=== PATIENT | male | born 1980 | race Hispanic/Latino ===

== ENCOUNTER 2018-04-16 19:45 | Inpatient (IN) | payer SELFPAY ==
[~2018-04-16] VITALS: Ht 152.4 cm; Wt 71.6 kg
[2018-04-16 21:03] LABS: HEMATOCRIT 43.6 % (39.0-50.0); HEMOGLOBIN 14.7 g/dl (14.0-18.0); IMMATURE GRANULOCYTES 0.2 % (0.0-5.0); MEAN CELL VOLUME 91.8 fL CALC (80.0-100.0); MEAN CORPUSCULAR HGB 30.9 pG CALC (26.0-32.0); MEAN CORPUSCULAR HGB CONC 33.7 g/L CALC (32.0-36.0); NEUT# 3.83 thou/uL (1.82-7.42); RED BLOOD COUNT 4.75 mill/uL (4.70-6.10); RED CELL DISTRI WIDTH 12.1 % (11.5-15.5)
[2018-04-16 21:15] LABS: ALBUMIN 3.7 g/dL (3.2-5.0); ALKALINE PHOSPHATASE 61 u/l (38-126); ANION GAP 15 (6-22 (CALC)); BILIRUBIN, TOTAL 0.5 mg/dL (0.0-1.4); BUN 12 mg/dL (9-20); BUN/CREATININE RATIO 17 (12-20 (CALC)); CARBON DIOXIDE 27 mmol/l (22-30); CHLORIDE 98 mmol/l (95-108); CREATININE 0.7 mg/dL (0.7-1.3); GFR > 60 ML/MIN (>=60 (CALC)); GFR FOR AFR.AMER. > 60 ML/MIN (>=60 (CALC)); SGOT/AST 48 u/l (17-59); SODIUM 136 mmol/l (137-146)
[2018-04-17 01:00] VITALS: BP 122/72
[2018-04-17 04:05] VITALS: BP 127/64
[2018-04-17 07:30] VITALS: BP 105/63
[2018-04-17 10:44] LABS: URINE BILIRUBIN - DIPSTICK NEGATIVE (NEGATIVE); URINE BLOOD DIPSTICK TRACE-INTACT (NEGATIVE); URINE GLUCOSE - DIPSTICK NEGATIVE (NEGATIVE); URINE KETONE NEGATIVE (NEGATIVE); URINE LEUK ESTERASE NEGATIVE (Negative); URINE NITRITE - DIPSTICK NEGATIVE (Negative); URINE PH 5.5 (4.5-8.0); URINE PROTEIN - DIPSTICK 100 mg/dL (NEG-TRACE); URINE SPECIFIC GRAVITY >=1.030; URINE UROBILINOGEN - DIPSTICK 0.2 E.U./dL (0.2)
[2018-04-17 10:46] LABS: URINE CLARITY CLEAR; URINE COLOR DK. YELLOW
[2018-04-17 10:58] LABS: URINE RBC 0-2 RBC/hpf (0-5); URINE WBC 0-2 WBC/hpf (0-5)
[2018-04-17 11:10] VITALS: BP 114/76
[2018-04-17 15:35] VITALS: BP 131/73
[2018-04-17 19:05] VITALS: BP 131/79
[2018-04-18] VITALS: BP 145/71
[2018-04-18 05:22] VITALS: BP 121/71
[2018-04-18 06:08] LABS: HEMATOCRIT 42.1 % (39.0-50.0); HEMOGLOBIN 14.2 g/dl (14.0-18.0); IMMATURE GRANULOCYTES 0.4 % (0.0-5.0); MEAN CELL VOLUME 93.1 fL CALC (80.0-100.0); MEAN CORPUSCULAR HGB 31.4 pG CALC (26.0-32.0); MEAN CORPUSCULAR HGB CONC 33.7 g/L CALC (32.0-36.0); PLATELET COUNT 93 thou/uL (130-400); RED BLOOD COUNT 4.52 mill/uL (4.70-6.10)
[2018-04-18 06:10] LABS: ALBUMIN 3.3 g/dL (3.2-5.0); ALKALINE PHOSPHATASE 72 u/l (38-126); ANION GAP 11 (6-22 (CALC)); BILIRUBIN, TOTAL 0.5 mg/dL (0.0-1.4); BUN 10 mg/dL (9-20); BUN/CREATININE RATIO 15 (12-20 (CALC)); CARBON DIOXIDE 30 mmol/l (22-30); CHLORIDE 100 mmol/l (95-108); CREATININE 0.7 mg/dL (0.7-1.3); GFR > 60 ML/MIN (>=60 (CALC)); GFR FOR AFR.AMER. > 60 ML/MIN (>=60 (CALC)); SGOT/AST 42 u/l (17-59); SODIUM 137 mmol/l (137-146); TOTAL PROTEIN 6.5 g/dL (6.3-8.2)
[2018-04-18 06:56] LABS: MANUAL DIFFERENTIAL YES
[2018-04-18 07:43] VITALS: BP 107/73
[2018-04-18 11:05] VITALS: BP 110/64
[2018-04-18 16:31] VITALS: BP 139/60
[2018-04-18 20:00] VITALS: BP 133/81
[2018-04-19] VITALS: BP 119/74
[2018-04-19 05:05] LABS: HEMATOCRIT 40.5 % (39.0-50.0); HEMOGLOBIN 13.9 g/dl (14.0-18.0); IMMATURE GRANULOCYTES 0.6 % (0.0-5.0); MEAN CELL VOLUME 91.4 fL CALC (80.0-100.0); MEAN CORPUSCULAR HGB 31.4 pG CALC (26.0-32.0); MEAN CORPUSCULAR HGB CONC 34.3 g/L CALC (32.0-36.0); PLATELET COUNT 110 thou/uL (130-400); RED BLOOD COUNT 4.43 mill/uL (4.70-6.10); RED CELL DISTRI WIDTH 12.1 % (11.5-15.5)
[2018-04-19 05:07] VITALS: BP 115/74
[2018-04-19 05:23] LABS: ALBUMIN 3.3 g/dL (3.2-5.0); ALKALINE PHOSPHATASE 63 u/l (38-126); ANION GAP 12 (6-22 (CALC)); BILIRUBIN, TOTAL 0.4 mg/dL (0.0-1.4); BUN 13 mg/dL (9-20); BUN/CREATININE RATIO 26 (12-20 (CALC)); CARBON DIOXIDE 28 mmol/l (22-30); CHLORIDE 102 mmol/l (95-108); CREATININE 0.5 mg/dL (0.7-1.3); GFR > 60 ML/MIN (>=60 (CALC)); GFR FOR AFR.AMER. > 60 ML/MIN (>=60 (CALC)); MAGNESIUM 2.3 mg/dL (1.6-2.3); POTASSIUM 4.3 mmol/l (3.5-5.1); SGOT/AST 33 u/l (17-59); SODIUM 138 mmol/l (137-146); TOTAL PROTEIN 6.5 g/dL (6.3-8.2)
[2018-04-19 05:41] LABS: MANUAL DIFFERENTIAL YES
[2018-04-19 08:30] VITALS: BP 138/72
[2018-04-19 11:25] VITALS: BP 116/72
[2018-04-19 15:53] VITALS: BP 121/74; BP 143/72
[2018-04-19 19:00] VITALS: BP 128/93
[2018-04-20] VITALS: BP 141/90
[2018-04-20 04:02] VITALS: BP 138/92
[2018-04-20 07:58] VITALS: BP 132/85
[2018-04-20 11:00] VITALS: BP 121/87
[2018-04-20 15:58] VITALS: BP 137/78
[2018-04-20 19:00] VITALS: BP 137/83
[2018-04-21] VITALS: BP 120/73
[2018-04-21 04:00] VITALS: BP 128/90
[2018-04-21 06:09] LABS: ANION GAP 11 (6-22 (CALC)); BUN 14 mg/dL (9-20); BUN/CREATININE RATIO 28 (12-20 (CALC)); CARBON DIOXIDE 28 mmol/l (22-30); CHLORIDE 103 mmol/l (95-108); CREATININE 0.5 mg/dL (0.7-1.3); GFR > 60 ML/MIN (>=60 (CALC)); GFR FOR AFR.AMER. > 60 ML/MIN (>=60 (CALC)); HEMATOCRIT 40.5 % (39.0-50.0); HEMOGLOBIN 13.9 g/dl (14.0-18.0); MEAN CELL VOLUME 91.6 fL CALC (80.0-100.0); MEAN CORPUSCULAR HGB 31.4 pG CALC (26.0-32.0); MEAN CORPUSCULAR HGB CONC 34.3 g/L CALC (32.0-36.0); POTASSIUM 4.2 mmol/l (3.5-5.1); RED BLOOD COUNT 4.42 mill/uL (4.70-6.10); RED CELL DISTRI WIDTH 11.9 % (11.5-15.5); SODIUM 138 mmol/l (137-146)
[2018-04-21 07:09] VITALS: BP 126/83
[2018-04-21 11:10] VITALS: BP 131/75
[2018-04-21] MEDS ORDERED: LEVAQUIN750 MG PO (13:29)
[2018-04-21] MEDS ORDERED: PREDNISONE10 MG PO (13:29)
[2018-04-21] MEDS ORDERED: ROBITUSSIN AC10 ML PO (13:32)
== END 2018-04-21 15:30 | disposition home or self-care (01) | DRG 195 ==
LOC: ED 19:45 → ED-I 23:55 → ED 04-17 00:07 → MS2 04-17 00:08
PROVIDERS: Emergency Medicine; Internal Medicine; ADMIT Internal Medicine Nephrology; ATTEND Internal Medicine Nephrology
DX: J18.9 Pneumonia, unspecified organism (principal); J02.0 Streptococcal pharyngitis; R80.9 Proteinuria, unspecified; Z23 Encounter for immunization
CPT/HCPCS: J1650; Q9967